=== PATIENT | male | born 1970 | race Caucasian/White ===

== ENCOUNTER 2017-02-13 13:54 | Emergency (ER) | payer MEDICAID ==
[~2017-02-13] VITALS: Ht 172.7 cm; Wt 65.8 kg
[2017-02-13 13:54] VITALS: BP 102/57
[2017-02-13] MEDS ORDERED: LIDOCAINE 1% INJ 50 ML MDV IJ ONE ×2 (14:30→14:35)
[2017-02-13] MEDS ORDERED: IBUPROFEN 600 MG TABLET PO ONE ×2 (15:18→15:30)
[2017-02-13] MEDS ORDERED: TDAP [DIPH/PERTUSSIS/TET] 0.5 ML VIAL IM ONE ×2 (15:19→15:30)
== END 2017-02-13 15:20 | disposition home or self-care (01) ==
LOC: ER 13:57
DX: S61.012A Laceration without foreign body of left thumb without damage to nail, initial encounter (principal); F10.10 Alcohol abuse, uncomplicated; F17.200 Nicotine dependence, unspecified, uncomplicated; Z23 Encounter for immunization; W26.8XXA Contact with other sharp object(s), not elsewhere classified, initial encounter; Y93.89 Activity, other specified; Y92.89 Other specified places as the place of occurrence of the external cause; Y99.8 Other external cause status
CPT/HCPCS: 12001; 73140; 90471; 90715; 99284; A4606; A6403; J3490; Z7610

== ENCOUNTER → 2017-02-16 | Emergency (ER) | payer MEDICAID ==
[~2017-02-16] VITALS: Ht 172.7 cm; Wt 66.2 kg
[2017-02-16 06:48] VITALS: BP 113/77
== END | disposition home or self-care (01) ==
LOC: ER 06:52
DX: S61.012D Laceration without foreign body of left thumb without damage to nail, subsequent encounter (principal); F17.200 Nicotine dependence, unspecified, uncomplicated; X58.XXXD Exposure to other specified factors, subsequent encounter
CPT/HCPCS: 99282; A4606 ×2; A6402; A6403; Z7610 ×2

== ENCOUNTER 2017-02-23 10:59 | Emergency (ER) | payer MEDICAID ==
[~2017-02-23] VITALS: Ht 172.7 cm; Wt 68.0 kg
[2017-02-23 11:03] VITALS: BP 143/78
--- NOTE | 2017-02-23 11:53 | NUR ---
SUTURES REMOVED. WOUND CARE PROVIDED. PT D/C HOME.
== END 2017-02-23 11:55 | disposition home or self-care (01) ==
LOC: ER 11:02
DX: S61.012D Laceration without foreign body of left thumb without damage to nail, subsequent encounter (principal); F17.200 Nicotine dependence, unspecified, uncomplicated; W26.8XXD Contact with other sharp object(s), not elsewhere classified, subsequent encounter
CPT/HCPCS: 99282; A4606; A6402; Z7610